=== PATIENT | male | born 1995 | race Caucasian/White ===

== ENCOUNTER 2018-07-12 19:52 | Emergency (ER) | payer SELFPAY ==
[2018-07-12 20:14] VITALS: BP 135/85; PULSE 98; TEMP 98.2; BMI 29.7
--- NOTE | 2018-07-12 20:41 | PDOC ---
History of Present Illness - General Chief Complaint: Pain Stated Complaint: FALL Time Seen by Provider: 07/12/18 20:13 - History of Present Illness Initial Comments: 3-year-old male without comorbidities presents for evaluation of right ankle pain. He describes an inversion injury while stepping off the bus about an hour prior to arrival. He points to the lateral aspect of the right ankle the area of his discomfort. 07/12/18 20:38 Past History - Past Medical History Allergies/Adverse Reactions: Allergies Allergy/AdvReac Type Severity Reaction Status Date / Time No Known Allergies Allergy Verified 07/12/18 20:00 Home Medications: Ambulatory Orders No Home Medications 0 dose .ROUTE UTDICT 04/21/12 COPD: No Other medical history: Pt denies - Surgical History Appendectomy: Yes - Immunization History Immunization Up to Date: Yes - Suicide/Smoking/Psychosocial Hx Smoking Status: No Smoking History: Never smoked Have you smoked in the past 12 months: No Number of Cigarettes Smoked Daily: 0 Information on smoking cessation initiated: No Hx Alcohol Use: No Drug/Substance Use Hx: No Substance Use Type: None Review of Systems - Review of Systems Musculoskeletal: Yes: See HPI, Joint Pain All Other Systems: Reviewed and Negative *Physical Exam - Vital Signs Last Vital Signs Temp Pulse Resp BP Pulse Ox 98.2 F 98 H 20 135/85 98 07/12/18 20:01 07/12/18 20:01 07/12/18 20:01 07/12/18 20:01 07/12/18 20:01 - Physical Exam Comments: Right ankle skin color and temperature are normal. There is mild swelling about the right ankle. He has no tenderness about the knee proximal fibula or along its distal course. No tenderness about the medial lateral malleolus, base of the fifth metatarsal or navicular. Mild discomfort over the ATFL. No evidence of instability or gross sensorimotor deficits. He is neurovascularly intact. 07/12/18 20:39 ED Treatment Course - RADIOLOGY Radiology Studies Ordered: Category Date Time Status ANKLE-RIGHT [RAD] Stat Radiology 07/12/18 20:23 Taken Medical Decision Making - Medical Decision Making This is a right ankle sprain, Aircast crutches weight-bear as tolerated follow- up with the 07/12/18 20:39 *DC/Admit/Observation/Transfer Diagnosis at time of Disposition: Ankle sprain - Discharge Dispostion Disposition: HOME Condition at time of disposition: Stable Decision to Admit order: No - Referrals Referrals: Roberto Martinez MD [Staff Physician] - - Patient Instructions Printed Discharge Instructions: Ankle Sprain, DI for Ankle Sprain Additional Instructions: He may weight-bear as tolerated with use of crutches and the Aircast. Please follow-up with orthopedic surgery in 2-3 days for further evaluation and treatment options. He may take Tylenol and Motrin as directed for pain. Return to the emergency room should symptoms worsen or go unresolved. - Post Discharge Activity
== END 2018-07-12 21:02 | disposition home or self-care (01) ==
LOC: JERFT 19:52
PROC: 2W3QX1Z Immobilization of Right Lower Leg using Splint (ICD-10-PCS; principal; 2018-07-12)
DX: S93.491A Sprain of other ligament of right ankle, initial encounter (principal); V78.4XXA Person boarding or alighting from bus injured in noncollision transport accident, initial encounter; Y93.89 Activity, other specified; Y92.414 Local residential or business street as the place of occurrence of the external cause; Y99.8 Other external cause status
CPT/HCPCS: 73610-TC-RT-FY; 99281-25

== ENCOUNTER 2018-10-01 00:44 | Emergency (ER) | payer SELFPAY ==
--- NOTE | 2018-10-01 01:02 | PDOC ---
Attending Attestation - Resident Resident Name: Kim Alford - ED Attending Attestation I have performed the following: I have examined & evaluated the patient, The case was reviewed & discussed with the resident, I agree w/resident's findings & plan, Exceptions are as noted - HPI HPI: 10/01/18 01:44 23-year-old male presents to the ER with laceration to the left thumb. Patient is right-handed. Patient complains of mild pain and bleeding. Last tetanus is unknown. - Physicial Exam PE: 10/01/18 01:45 Patient is awake and alert, well-appearing, Normocephalic and atraumatic 1.5 cm to 2 cm vertical laceration through the cuticle and the nail of the left thumb; 2 point discrimination's intact; cap refill is intact; Distal pulses intact bilaterally - Medical Decision Making 10/01/18 01:46 23-year-old male with left thumb laceration involving the nail. We'll perform digital block. Will copiously irrigated. Will evaluate for nail bed laceration and will repair as needed. Will replace the nail. Will discharge. 10/01/18 01:52 Nail elevated. No nail bed laceration edition is noted. Will replace the nail. Will repair primarily. Will discharge with return in 7 days for suture removal.
--- NOTE | 2018-10-01 01:05 | PDOC ---
History of Present Illness - General Stated Complaint: L SIDED HAND LAC Time Seen by Provider: 10/01/18 01:01 History Source: Patient - History of Present Illness Initial Comments: 10/01/18 01:41 The patient is a 23 year old male who presents with L 1st digit laceration. Patient was using a safe deposit box rental clerk to cut wire and sliced toward himself lacerating his 1st digit. NKDA Surgical: Appendectomy Social: 5 cigarettes daily, social alcohol, denies other toxic habits PMD: None - declines referral to resident clinic Past History - Past Medical History Allergies/Adverse Reactions: Allergies Allergy/AdvReac Type Severity Reaction Status Date / Time No Known Allergies Allergy Verified 10/01/18 01:37 Home Medications: Ambulatory Orders No Home Medications 0 dose .ROUTE UTDICT 04/21/12 COPD: No - Surgical History Appendectomy: Yes - Immunization History Immunization Up to Date: Yes - Suicide/Smoking/Psychosocial Hx Smoking Status: No Smoking History: Never smoked Have you smoked in the past 12 months: No Number of Cigarettes Smoked Daily: 0 Hx Alcohol Use: No Drug/Substance Use Hx: No Substance Use Type: None Review of Systems - Review of Systems Constitutional: No: Chills, Fever HEENTM: No: Recent change in vision Respiratory: No: Cough, Shortness of Breath Cardiac (ROS): No: Chest Pain, Lightheadedness, Palpitations, Syncope ABD/GI: No: Constipated, Diarrhea, Nausea, Vomiting *Physical Exam - Physical Exam General Appearance: Yes: Nourished, Appropriately Dressed HEENT: positive: Normal Voice, Hearing Grossly Normal Neck: positive: Trachea midline, Supple Extremity: positive: Other (1 cm laceration through cuticle and nail bed; NVI; 2 + radial pulse) Neurologic: positive: Fully Oriented, Alert Medical Decision Making - Medical Decision Making 10/01/18 01:45 23 year old male with 1st digit laceration. PE shows 1.5 vertical laceration through cuticle and nail of left thumb. NVI. Digital nerve block with repair of laceration using 4.0 nylon with 6 w/simple interrupted sutures. Patient discharged home with instruction to return to ED in 7 days for suture removal. I discussed the physical exam findings, ancillary test results and final diagnoses with the patient. I answered all of the patient's questions. The patient was satisfied with the care received and felt comfortable with the discharge plan and treatment plan. The patient will return to the Emergency Department with any new, persistent or worsening symptoms. *DC/Admit/Observation/Transfer Diagnosis at time of Disposition: Laceration of thumb - Discharge Dispostion Disposition: HOME Condition at time of disposition: Good Decision to Admit order: No - Referrals - Patient Instructions Printed Discharge Instructions: DI for Laceration Repair Additional Instructions: Return to the Emergency Department in 7 days for suture removal. Return to the Emergency Department for that time for any new/worsening/concerning symptoms. - Post Discharge Activity
[2018-10-01 01:08] VITALS: BP 108/75; PULSE 75; TEMP 97.5; BMI 25.8
[2018-10-01] MEDS ORDERED: DIPHTH,PERTUSS(ACELL),TET 0.5 ML DISP.SYRIN IM ONE ×2 (02:04→02:13)
== END 2018-10-01 02:33 | disposition home or self-care (01) ==
LOC: JER 00:44
PROC: 0HQGXZZ Repair Left Hand Skin, External Approach (ICD-10-PCS; principal; 2018-10-01)
PROC: 3E0234Z Introduction of Serum, Toxoid and Vaccine into Muscle, Percutaneous Approach (ICD-10-PCS; 2018-10-01)
DX: S61.112A Laceration without foreign body of left thumb with damage to nail, initial encounter (principal); W26.0XXA Contact with knife, initial encounter; Y93.89 Activity, other specified; Y92.410 Unspecified street and highway as the place of occurrence of the external cause
CPT/HCPCS: 90715; 99283-25

== ENCOUNTER 2018-10-08 18:24 | Emergency (ER) | payer SELFPAY ==
[2018-10-08 18:34] VITALS: BP 127/64; PULSE 65; TEMP 97.9; BMI 27.8
--- NOTE | 2018-10-08 19:09 | PDOC ---
Suture Removal/Wound Check HPI - History of Present Illness Chief Complaint: Suture/Staple Removal(Here) Stated Complaint: SUTURE REMOVAL HERE Time Seen by Provider: 10/08/18 19:00 History Source: Yes: Patient Treated at: [facility] Date of Last ED visit: 10/01/18 - Previous ED Treatment Type of procedure performed on last visit: Yes: Laceration Repair Tetanus Immunization: Yes: Up to Date, Given at last ED visit - Onset of Previous Treatment Date of Occurence: 10/01/18 Past History - Past Medical History Allergies/Adverse Reactions: Allergies Allergy/AdvReac Type Severity Reaction Status Date / Time No Known Allergies Allergy Verified 10/08/18 18:35 Home Medications: Ambulatory Orders No Home Medications 0 dose .ROUTE UTDICT 04/21/12 Cephalexin Monohydrate [Keflex -] 500 mg PO BID #14 capsule 10/08/18 COPD: No - Surgical History Appendectomy: Yes - Immunization History Immunization Up to Date: Yes - Suicide/Smoking/Psychosocial Hx Smoking Status: No Smoking History: Never smoked Have you smoked in the past 12 months: No Number of Cigarettes Smoked Daily: 0 Hx Alcohol Use: No Drug/Substance Use Hx: No Substance Use Type: None *Review of Systems - Review of Systems Able to Perform ROS?: Yes Constitutional: No: Symptoms Reported, See HPI, Chills, Diaphoresis, Fever, Loss of Appetite, Malaise, Night Sweats, Weakness, Weight Stable, Unintentional Wgt. Loss, Unexplained wgt Loss, Other *Physical Exam - Vital Signs Last Vital Signs Temp Pulse Resp BP Pulse Ox 97.9 F 65 18 127/64 99 10/08/18 18:32 10/08/18 18:32 10/08/18 18:32 10/08/18 18:32 10/08/18 18:32 - Physical Exam General Appearance: Yes: Appropriately Dressed Moderate Sedation - Procedure Monitoring Vital Signs: Procedure Monitoring Vital Signs Temperature 97.9 F 10/08/18 18:32 Pulse Rate 65 10/08/18 18:32 Respiratory Rate 18 10/08/18 18:32 Blood Pressure 127/64 10/08/18 18:32 O2 Sat by Pulse Oximetry (%) 99 10/08/18 18:32 Medical Decision Making - Medical Decision Making 10/08/18 19:30 I advised patient to follow-up with hand surgery orthopedic as soon as possible to ensure healing. Patient has some tenderness to the distal end of the thumb. No pus drainage noted no surrounding erythema. Considering that there is tenderness at the site will empirically treat and then patient's advised to follow-up. Patient reports that he has no insurance will refer him to the clinic.. *DC/Admit/Observation/Transfer Diagnosis at time of Disposition: Visit for suture removal, Finger infection - Discharge Dispostion Disposition: HOME - Prescriptions Prescriptions: Cephalexin Monohydrate [Keflex -] 500 mg PO BID #14 capsule - Referrals Referrals: [facility] [Outside] - Patient Instructions Printed Discharge Instructions: DI for Suture Removal Additional Instructions: please follow up with the clinic for a wound check. Additional Instructions: * Please call your personal physician to report your Emergency Department visit and to report your progress, if any. * If there is no improvement in symptoms in 2 days call your physician. * Return to the Emergency Department for any worsening symptoms. - Post Discharge Activity Forms/Work/School Notes: Back to Work
[2018-10-08] MEDS ORDERED: BACITRACIN 15 GM TUBE TOPICAL OINTMENT ONE (19:21)
[2018-10-08] MEDS ORDERED: BACITRACIN 15 GM TUBE TOPICAL OINTMENT TP ONE (19:26)
== END 2018-10-08 19:39 | disposition home or self-care (01) ==
LOC: JERFT 18:24
DX: Z48.817 Encounter for surgical aftercare following surgery on the skin and subcutaneous tissue (principal); Z48.02 Encounter for removal of sutures
CPT/HCPCS: 99281-25

== ENCOUNTER 2019-05-31 23:21 | Emergency (ER) | payer OTHER ==
[2019-05-31 23:34] VITALS: BP 116/70; PULSE 90; TEMP 98.3; BMI 25.8
--- NOTE | 2019-06-01 00:26 | PDOC ---
History of Present Illness - General Chief Complaint: Ear Problem Stated Complaint: HEARING PROBLEM Time Seen by Provider: 06/01/19 00:16 History Source: Patient Exam Limitations: No Limitations - History of Present Illness Initial Comments: 06/01/19 00:27 HISTORY OF PRESENT ILLNESS: 24-year-old male denies medical history presents emergency department for evaluation of soreness to his right external ear. Patient reports he is a hard time cleaning his ears and his girlfriend used a blackhead remover to try to remove cerumen. Patient noted to have pain after that. He denies any fevers, chills, hearing loss, discharge or drainage from his ears. Patient denies ear blood use but uses headphones on his hour and a half commute to work daily. No recent travel or sick contacts. PAST MEDICAL HISTORY: Denies past medical history SURGICAL HISTORY: Denies ALLERGIES: No known drug allergies REVIEW OF SYSTEMS General/Constitutional: Denies fever or chills. Denies weakness, weight change. HEENT: see HPI Cardiovascular: Denies chest pain or shortness of breath. Respiratory: Denies cough, wheezing, or hemoptysis. Gastrointestinal: Denies nausea, vomiting, diarrhea or constipation. Denies rectal bleeding. Genitourinary: Denies dysuria, frequency, or change in urination. Musculoskeletal: Denies joint or muscle swelling or pain. Denies neck or back pain. Skin and breasts: Denies rash or easy bruising. Neurologic: Denies headache, vertigo, loss of consciousness, or loss of sensation. Psychiatric: Denies depression or anxiety. Endocrine: Denies increased thirst. Denies abnormal weight change. Hematologic/Lymphatic: Denies anemia, easy bleeding, or history of blood clots. Allergic/Immunologic: Denies hives or skin allergy. Denies latex allergy. PHYSICAL EXAM General Appearance: Well-appearing, appropriately dressed. No apparent distress , no intoxication. HEENT: EOMI, PERRLA, normal ENT inspection, normal voice, TMs normal, pharynx normal. No conjunctival pallor. No photophobia, scleral icterus. Erythema noted to right external auditory canal with exudate present. Left external auditory canal mildly erythematous without exudates noted. No tragal tenderness bilaterally. No mastoid tenderness bilaterally. Neck: Supple. Trachea midline. No tenderness, rigidity, carotid bruit, stridor , lymphadenopathy, or thyromegaly. Respiratory/Chest: Lungs CTAB. No shortness of breath, chest tenderness, respiratory distress, accessory muscle use. No crackles, rales, rhonchi, stridor , wheezing, dullness Cardiovascular: RRR. S1, S2. No JVD, murmur, bradycardia, tachycardia. Vascular Pulses: Dorsalis-Pedis (R): 2+, Dorsalis-Pedis (L): 2+ Past History - Past Medical History Allergies/Adverse Reactions: Allergies Allergy/AdvReac Type Severity Reaction Status Date / Time No Known Allergies Allergy Verified 05/31/19 23:32 Home Medications: Ambulatory Orders No Home Medications 0 dose .ROUTE UTDICT 04/21/12 Ciprofloxacin HCl/Dexameth [Ciprodex Otic Suspension] 4 drop AD BID 7 Days #1 bottle 06/01/19 COPD: No - Surgical History Appendectomy: Yes - Immunization History Immunization Up to Date: Yes - Suicide/Smoking/Psychosocial Hx Smoking Status: No Smoking History: Never smoked Have you smoked in the past 12 months: No Number of Cigarettes Smoked Daily: 0 Information on smoking cessation initiated: No Hx Alcohol Use: No Drug/Substance Use Hx: No Substance Use Type: None *Physical Exam - Vital Signs Last Vital Signs Temp Pulse Resp BP Pulse Ox 98.3 F 90 20 116/70 98 05/31/19 23:33 05/31/19 23:33 05/31/19 23:33 05/31/19 23:33 05/31/19 23:33 Medical Decision Making - Medical Decision Making 06/01/19 00:30 A/P: 24-year-old male with an acute otitis externa Discharge home with Ciprodex drops *DC/Admit/Observation/Transfer Diagnosis at time of Disposition: Otitis externa Qualifiers: Otitis externa type: unspecified type Chronicity: acute Laterality: right Qualified Code(s): H60.501 - Unspecified acute noninfective otitis externa, right ear - Discharge Dispostion Disposition: HOME Condition at time of disposition: Stable Decision to Admit order: No - Prescriptions Prescriptions: Ciprofloxacin HCl/Dexameth [Ciprodex Otic Suspension] 4 drop AD BID 7 Days #1 bottle - Referrals - Patient Instructions Additional Instructions: Rest, lots of fluids; water, teas, soups NEVER insert objects into your ears. Hot wet soaks to ear/hot packs may help relieve some pain May use [id number] anesthetic drops to ears to help relieve some pain Avoid getting water in ear, may use alcohol drops to help dry up any water retained in ears Severe using earplugs when swimming to avoid any water retention Continue ibuprofen or Tylenol for pain and fevers Ciprodex otic solution 3 drops 2 times a day for 7 days Followup with private physician / ENT doctor in 2-3 days Return to emergency department or see private physician immediately for swelling , redness, from ears, or fevers, - Post Discharge Activity Forms/Work/School Notes: Back to Work
== END 2019-06-01 00:29 | disposition home or self-care (01) ==
LOC: JER 23:21
DX: H60.501 Unspecified acute noninfective otitis externa, right ear (principal)
CPT/HCPCS: 99282-25

== ENCOUNTER 2019-07-12 14:01 | Emergency (ER) | payer OTHER ==
--- NOTE | 2019-07-12 14:08 | PDOC ---
Rapid Medical Evaluation Time Seen by Provider: 07/12/19 14:05 Medical Evaluation: Allergies Allergy/AdvReac Type Severity Reaction Status Date / Time No Known Allergies Allergy Verified 05/31/19 23:32 07/12/19 14:05 CC: Rash to LLE with left hip pain PE: red raised painful blanchable papular rash to left lower leg Orders: nothing Patient will proceed to ER for further evaluation. Discharge Disposition - Diagnosis Rash - Referrals - Patient Instructions - Post Discharge Activity
[2019-07-12 14:09] VITALS: BP 106/86; PULSE 96; TEMP 98.6; BMI 27.3
--- NOTE | 2019-07-12 14:35 | PDOC ---
History of Present Illness - General Chief Complaint: Rash Stated Complaint: LT. HIP PAIN/ RASH Time Seen by Provider: 07/12/19 14:05 - History of Present Illness Initial Comments: 07/12/19 14:29 24-year-old male without comorbidities presents for evaluation of rash x3 days without systemic symptoms. Past History - Past Medical History Allergies/Adverse Reactions: Allergies Allergy/AdvReac Type Severity Reaction Status Date / Time No Known Allergies Allergy Verified 07/12/19 14:09 Home Medications: Ambulatory Orders Clobetasol Propionate [Temovate] 30 gm TP BID #1 oint...g. 07/12/19 Methylprednisolone [Medrol Dose Mandeep] 4 mg PO ASDIR #21 tablet 07/12/19 COPD: No - Surgical History Appendectomy: Yes - Immunization History Immunization Up to Date: Yes - Psycho Social/Smoking Cessation Hx Smoking Status: No Smoking History: Current every day smoker Have you smoked in the past 12 months: Yes Number of Cigarettes Smoked Daily: 0 Information on smoking cessation initiated: No Hx Alcohol Use: Yes (SOCIAL) Drug/Substance Use Hx: No Substance Use Type: None Review of Systems - Review of Systems Constitutional: No: Fever Integumentary: Yes: Pruritus, Rash *Physical Exam - Vital Signs Last Vital Signs Temp Pulse Resp BP Pulse Ox 98.6 F 96 H 18 106/86 98 07/12/19 14:05 07/12/19 14:05 07/12/19 14:05 07/12/19 14:05 07/12/19 14:05 - Physical Exam Comments: 07/12/19 14:29 There is a maculopapular rash on the lower extremity without indication of secondary infection Medical Decision Making - Medical Decision Making 07/12/19 14:30 This rash appears to be a contact dermatitis Medrol Dosepak clobetasol follow- up with Derm 07/12/19 14:36 Discharge - Discharge Information Problems reviewed: Yes Clinical Impression/Diagnosis: Rash, Contact dermatitis Condition: Stable Disposition: HOME - Admission No - Follow up/Referral Referrals: Ros Kaur MD [Staff Physician] - - Patient Discharge Instructions Additional Instructions: Return to the emergency room for worsening symptoms. Please use the steroids as directed. Please follow-up with dermatology in 1 to 2 days without fail for further evaluation and treatment options. - Post Discharge Activity
== END 2019-07-12 14:45 | disposition home or self-care (01) ==
LOC: JERFT 14:01
DX: R21 Rash and other nonspecific skin eruption (principal); L25.9 Unspecified contact dermatitis, unspecified cause; F17.210 Nicotine dependence, cigarettes, uncomplicated
CPT/HCPCS: 99281-25

== ENCOUNTER 2021-07-03 19:37 | Emergency (ER) | payer OTHER ==
[2021-07-03 19:56] VITALS: BP 116/78; PULSE 84; TEMP 98.3; BMI 31.0
[2021-07-03] MEDS ORDERED: KETOROLAC TROMETHAMINE 30 MG/1 ML VIAL IM ONE (20:21)
[2021-07-03] MEDS ORDERED: KETOROLAC TROMETHAMINE 30 MG/1 ML VIAL ONE (20:42)
== END 2021-07-03 21:40 | disposition home or self-care (01) ==
LOC: JERFT 19:37
PROC: 3E0233Z Introduction of Anti-inflammatory into Muscle, Percutaneous Approach (ICD-10-PCS; principal; 2021-07-03)
DX: M25.512 Pain in left shoulder (principal)
CPT/HCPCS: 73030-TC-LT-FY; 99284-25

== ENCOUNTER 2021-10-13 18:12 | Emergency (ER) | payer OTHER ==
[2021-10-13 18:29] VITALS: BP 106/73; PULSE 85; TEMP 97.9; BMI 29.5
== END 2021-10-13 21:11 | disposition home or self-care (01) ==
LOC: JER 18:12
DX: M25.561 Pain in right knee (principal)
CPT/HCPCS: 99281-25

== ENCOUNTER 2022-02-03 17:53 | Emergency (ER) | payer OTHER ==
[2022-02-03 18:06] VITALS: BP 117/70; PULSE 89; TEMP 98.2; BMI 30.4
[2022-02-03] MEDS ORDERED: ACETAMINOPHEN 500 MG TABLET (FP) PO ONE (19:04)
[2022-02-03] MEDS ORDERED: ACETAMINOPHEN 500 MG TABLET (FP) ONE (19:19)
== END 2022-02-03 21:53 | disposition home or self-care (01) ==
LOC: JERFT 17:53
DX: S09.90XA Unspecified injury of head, initial encounter (principal); W22.8XXA Striking against or struck by other objects, initial encounter
CPT/HCPCS: 70450-TC; 99284-25

== ENCOUNTER 2022-11-10 11:47 | Emergency (ER) | payer SELFPAY ==
[2022-11-10 12:01] VITALS: BP 122/78; PULSE 91; RESP 20; TEMP 98.5; BMI 29.5
[2022-11-10] MEDS ORDERED: KETOROLAC TROMETHAMINE 30 MG/1 ML VIAL IM ONE (12:39)
[2022-11-10] MEDS ORDERED: LIDOCAINE 5% TOPICAL PATCH TP ONE (12:40)
[2022-11-10] MEDS ORDERED: KETOROLAC TROMETHAMINE 30 MG/1 ML VIAL ONE (12:49)
[2022-11-10] MEDS ORDERED: LIDOCAINE 5% TOPICAL PATCH ONE (12:49)
[2022-11-10 13:29] LABS: URINE APPEARANCE CLEAR; URINE BILIRUBIN NEGATIVE (NEGATIVE); URINE COLOR YELLOW; URINE GLUCOSE (UA) NEGATIVE (NEGATIVE); URINE KETONE NEGATIVE (NEGATIVE); URINE LEUK ESTERASE NEGATIVE (NEGATIVE); URINE NITRITE NEGATIVE (NEGATIVE); URINE PROTEIN NEGATIVE (NEGATIVE); URINE UROBILINOGEN 0.2 mg/dL (0.2-1.0)
== END 2022-11-10 14:19 | disposition home or self-care (01) ==
LOC: JER 11:47
PROC: 3E0233Z Introduction of Anti-inflammatory into Muscle, Percutaneous Approach (ICD-10-PCS; principal; 2022-11-10)
DX: S39.012A Strain of muscle, fascia and tendon of lower back, initial encounter (principal); X50.0XXA Overexertion from strenuous movement or load, initial encounter
CPT/HCPCS: 81003; 87086; 99284-25

== ENCOUNTER 2024-04-12 14:26 | Emergency (ER) | payer OTHER ==
[2024-04-12 14:58] VITALS: BP 137/74; PULSE 100; RESP 18; TEMP 98.2; BMI 31.9
== END 2024-04-12 16:19 | disposition home or self-care (01) ==
LOC: JER 14:26 → JERFT 14:26
PROC: 0HQFXZZ Repair Right Hand Skin, External Approach (ICD-10-PCS; principal; 2024-04-12)
DX: S61.210A Laceration without foreign body of right index finger without damage to nail, initial encounter (principal); W26.0XXA Contact with knife, initial encounter
CPT/HCPCS: 99282-25